=== PATIENT | female | born 1960 | race Caucasian/White ===

== ENCOUNTER 2020-12-23 15:17 | Emergency (ER) | payer BC ==
[~2020-12-23] VITALS: Ht 157.5 cm; Wt 46.6 kg
[2020-12-23 15:22] VITALS: BP 101/61
[2020-12-23] MEDS ORDERED: HYDROcodone/acetaminophen 5mg/325mg tablet PO STA (15:26)
== END 2020-12-23 18:21 | disposition home or self-care (01) ==
LOC: ER 15:18
DX: S52.502A Unspecified fracture of the lower end of left radius, initial encounter for closed fracture (principal); S52.602A Unspecified fracture of lower end of left ulna, initial encounter for closed fracture; M25.532 Pain in left wrist; W19.XXXA Unspecified fall, initial encounter; Y93.89 Activity, other specified; Y92.89 Other specified places as the place of occurrence of the external cause; Y99.8 Other external cause status
CPT/HCPCS: 29125; 73110; 99284